=== PATIENT | female | born 2000 | race Caucasian/White ===

== ENCOUNTER 2024-09-18 21:51 | Emergency (ER) | payer BC, SELFPAY ==
[2024-09-18 21:59] VITALS: BP 133/92
[2024-09-18] MEDS: TYLENOL 650 MG PO (22:09)
[2024-09-18 22:25] LABS: Hematocrit 37.9 % (37.0-47.0); Hemoglobin 13.8 g/dL (12.0-16.0); Mean Corp Hgb Conc. 36.4 g/dL (33.0-37.0); Mean Corpuscular Volume 86.7 fL (81.0-99.0); Platelet Count 132 10^3/uL (130-400); Red Cell Dist. Width 12.2 % (11.5-14.5)
[2024-09-18 22:32] LABS: ALT (SGPT) 205 U/L (0-35); AST (SGOT) 268 U/L (14-36); Albumin 4.1 g/dl (3.5-5.0); Alkaline Phosphatase 119 U/L (38-126); Blood Urea Nitrogen 4 mg/dl (7-17); Calcium 8.4 mg/dl (8.4-10.2); Carbon Dioxide 26 mmol/L (22-30); Chloride 104 mmol/L (98-107); Glucose 140 mg/dl (70-99); Potassium 3.6 mmol/L (3.5-5.1); Sodium 134 mmol/L (135-145); Total Protein 7.1 g/dl (6.3-8.2); eGFR > 60.00
[2024-09-18 22:42] LABS: Absolute Neutrophils -Man Diff 1.8 10^3/uL (1.4-6.5)
[2024-09-18 22:43] LABS: Normal RBC Morphology Yes; Platelets Checked Yes; Total Cells Counted 100
--- NOTE | 2024-09-19 00:46 | ED.GENMED ---
History of Present Illness
General
Chief Complaint: Chest Pain
Time Seen by Provider: 09/19/24 00:46
History of Present Illness
History of Present Illness:
TIME OF INITIAL EVALUATION
- 12:55 AM
REVIEW OF OLD RECORDS
- The patient denies any significant past medical history
Note:
CHIEF COMPLAINT(S)
Fever and swollen lymph nodes.
HISTORY OF PRESENT ILLNESS
The patient is a 24-year-old female presenting with fever and a complaint of swollen lymph nodes on the left side of the back, beginning approximately one week ago. The patient describes experiencing feverish sensations consistently from Saturday to
today. She visited urgent care yesterday, where she received a COVID-19 test and a streptococcal pharyngitis test, both of which returned negative results. Despite these results, the urgent care providers suspected streptococcal pharyngitis and
prescribed antibiotics, which the patient reports did not alleviate the fever.
The patients temperature upon presentation was slightly elevated, approximately 101�F. She reports previously experiencing an elevated temperature in the range of 101�F to 102�F. She denies having symptoms of a sore throat or recent tick bites. A
mononucleosis test conducted was negative; however, her liver transaminases are elevated, approximately in the 200s, and atypical lymphocytes are present in her bloodstream, suggesting infectious mononucleosis. The patient reports a prior headache,
which has since resolved.
The recommendation was made to avoid vigorous physical activities, such as contact sports, over the next month due to the potential risk of splenic enlargement and rupture associated with infectious mononucleosis. Although the patient is not
currently experiencing a significantly enlarged spleen or severe sore throat symptoms, the option of starting a course of steroid medication was offered to potentially decrease lymph node swelling. The patient has been able to maintain hydration
effectively and does not feel that intravenous fluids are necessary at this time.
PHYSICAL EXAM
- General: Well appearing in no distress
- HEENT: Moderate left-sided anterior lateral cervical lymphadenopathy, posterior oropharynx shows no edema or exudate
- Cardiovascular: No murmurs, borderline tachycardic heart rate, regular rhythm, No chest wall tenderness
- Pulmonary: No respiratory distress, breath sounds are clear and equal
- Abdomen: Soft with no peritoneal signs, no tenderness
- Neurologic: Excellent strength all extremities, no coordination deficits
- Psychiatric: Appropriate mental status, normal insight and judgement
- Extremities: Nontender, no edema, moves all extremities equally
- Skin: No rash, no lesions
PLAN
1. The patient advised to abstain from vigorous physical activities for the next month to mitigate the risk of splenic injury.
2. Consideration of prescribing steroid medication to reduce lymph node swelling if desired by the patient.
3. Reassessment of EKG to ensure no significant findings are present.
4. Continuation of hydration through oral fluids.
DIFFERENTIAL DIAGNOSIS
The Differential Diagnosis includes, in no particular order and is not limited to:
1. Infectious Mononucleosis
2. Viral Pharyngitis
3. Lymphadenitis
4. Streptococcal Pharyngitis
5. Cytomegalovirus Infection
6. Getachew-Raygoza Virus Infection other than Mononucleosis
7. HIV Infection
8. Hepatitis
9. Tuberculosis
10. Toxoplasmosis
RADIOLOGY
- No clear indication for imaging
EKG
- Sinus 104, nonspecific ST abnormality, incomplete right bundle branch
LABS
- Transaminases are elevated in the 200s, white count is 3.8, mono negative however of note she does have an elevated percentage of atypical lymphocytes
UPDATE
-SUMMARY OF ENCOUNTER
The patient, a 24-year-old female, presented to the emergency department primarily due to fever and swollen lymph nodes. Upon evaluation, examination of her lungs was conducted, which sounded clear and did not suggest pneumonia. The assessment
leaned towards infectious mononucleosis or a viral illness given the secondary lab findings. The recommendation was to discontinue amoxicillin as it could exacerbate symptoms if mononucleosis is present. It was decided to administer a dose of
steroid medication in the emergency department with a prescription for a few additional days, acknowledging that steroids could potentially cause sleep disturbances; the patient was advised to use diphenhydramine for sleep if necessary.
DISPOSITION
Discharge.
ASSESSMENT
Suspected infectious mononucleosis or viral illness based on clinical evaluation and supporting lab findings.
PLAN
- Administer a dose of steroid medication in the ED and prescribe additional doses for home.
- Discontinue current amoxicillin prescription to avoid exacerbation of symptoms if mononucleosis is present.
- Patient advised to use diphenhydramine if steroids interfere with sleep.
- Discharge home with instructions for self-care and symptom monitoring.
INDEPENDENT REVIEW OF LABS AND INTERPRETATION OF TESTS
My independent review of prior lab work suggests findings consistent with infectious mononucleosis, given the presence of elevated transaminases and atypical lymphocytes.
PATIENT EDUCATION AND COUNSELING
The patient was educated on the possibility of infectious mononucleosis and its implications, including the recommendation to discontinue amoxicillin. Potential side effects of steroid treatment, such as sleep disturbances, were discussed, with the
suggestion of using diphenhydramine to aid sleep if required.
FOLLOW-UP INSTRUCTIONS
The patient was advised to monitor symptoms and ensure follow-up with her primary care physician if symptoms persist or worsen.
MEDICATION RECONCILIATION
1. One dose of steroid medication administered in the emergency department.
2. Prescription provided for a short course of steroid medication to take at home.
3. Discontinue amoxicillin.
MEDICAL DECISION MAKING
- Number and Complexity of Problems Addressed: Chronic conditions affecting care include suspected infectious mononucleosis. Differential Diagnosis included: Infectious Mononucleosis, Viral Pharyngitis, Lymphadenitis, Streptococcal Pharyngitis,
Cytomegalovirus Infection, Getachew-Raygoza Virus Infection other than Mononucleosis, HIV Infection, Hepatitis, Tuberculosis, Toxoplasmosis.
- Data:
Category 1: Reviewed previous lab work showing elevated transaminases and atypical lymphocytes.
- Risk: Consideration of Admission/Observation was considered due to the complexity and risk associated with the patients symptoms. However, the patient was deemed safe for discharge with instructions for outpatient monitoring and follow-up.
DIAGNOSIS
- Suspected Infectious Mononucleosis: ICD-10-CM B27.90
- Viral Infection, unspecified: ICD-10-CM B34.9
Phy Exam
Physical Exam
Physical Exam:
See HPI
Scores
Heart Score for Chest Pain Patients
STEMI patient?: Not applicable
Course
Orders/Labs/Results
Orders:
Orders
09/18/24 21:53
Electrocardiogram (*1) Urgent
Reason for Study: Chest Pain
EKG- Treatment ONCE
09/18/24 22:04
Acetaminophen [Tylenol] 650 mg PO NOW STA
09/18/24 22:07
Complete Blood Count/With Diff Urgent
Comprehensive Metabolic Panel Urgent
Manual Differential Urgent
Monotest Urgent
Comment: ADD ON
09/18/24 23:02
Add On- LAB Urgent
Tests Added?: mono. test
09/19/24 01:02
Prednisone [Deltasone] 50 mg PO NOW STA
Abnormal Lab Results
09/18/24
22:07
WBC 3.8 L 10^3/uL
(4.8-10.8)
MCH 31.6 H pg
(27.0-31.0)
MPV 11.0 H fL
(7.4-10.4)
Sodium 134 L mmol/L
(135-145)
BUN 4 L mg/dl
(7-17)
Glucose 140 H mg/dl
(70-99)
AST 268 H U/L
(14-36)
ALT 205 H U/L
(0-35)
09/18/24 22:07
09/18/24 22:07
Vital Signs
Initial and Last Documented VS:
Initial Vital Signs
Temp Pulse Resp BP Pulse Ox
38.4 C H 111 18 133/92 98
09/18/24 21:59 09/18/24 21:59 09/18/24 21:59 09/18/24 21:59 09/18/24 21:59
Last Documented Vital Signs
Temp Pulse Resp BP Pulse Ox
38.4 C H 111 18 133/92 98
09/18/24 21:59 09/18/24 21:59 09/18/24 21:59 09/18/24 21:59 09/19/24 00:49
*Pulse Oximetry
SaO2: 98
Oxygen Mode of Delivery: Room air
Patient hypoxic: no
*Critical Care Note
Total Time (30-74mins, 75-104mins- exclusive of procedures): Not Applicable
ED Attending Note
-
Portions of this chart may have been created with voice recognition software.� Occasional wrong word or��sound alike� substitutions may have occurred due to the inherent limitations of voice recognition software.
Discharge Plan
Departure
Patient Disposition: Home (Routine Discharge)
Date of Disposition: 09/19/24
Time of Disposition: 01:15
Patient with high blood pressure during this ER visit?: Yes
Discharge Problem:
Mononucleosis
Instructions: Mononucleosis Test, Mononucleosis
Activity Restrictions/Additional Instructions:
Although your monotest came back negative, I do have strong suspicion for mono as you do have elevated transaminase levels (liver numbers) and atypical lymphocytes on your blood work. We can try a few more days of steroids to see if this helps your
symptoms. Continue Tylenol for fevers. Since I do not see any clear sign for need for antibiotics at this time and if this is mono, use of amoxicillin with mono can lead to a rash. Therefore, I recommend stopping the amoxicillin. Return here if
worse or other concerns. No vigorous sports activities or anything that you could potentially injure yourself with over the next month
Interventions
Interventions:
*General Assessment Last Done: 09/18/24 21:59
Discharge Date and Time
Print Language: CROATIAN
[2024-09-19] MEDS: DELTASONE 50 MG PO (01:32)
[2024-09-19 01:49] VITALS: BP 128/74
== END 2024-09-19 01:56 | disposition home or self-care (01) ==
LOC: EMR 21:51
PROVIDERS: Student in an Organized Health Care Education/Training Program; EMERGENCY PHYSICIAN Emergency Medicine
DX: B27.90 Infectious mononucleosis, unspecified without complication (principal); R74.01 Elevation of levels of liver transaminase levels
CPT/HCPCS: 99284; 80053; 85025; 86308; 93005